=== PATIENT | female | born 1980 | race American Indian/Alaskan Native ===

== ENCOUNTER 2018-06-15 15:56 | Emergency (ER) | payer MEDICAID, OTHER ==
--- NOTE | 2018-06-15 17:11 | Emergency Department Report ---
Blank Doc - Documentation Documentation: 38 y o female presents stating that she is and having bilateral flank pAIN TOOK home upt 2 days ago no injuries, trauma,NO BLEEDING, NO PELC PAIN LMP: 03/13/18 ua,upt ac eval
[2018-06-15 17:49] LABS: HCG Qualitative,Urine Positive (Negative)
[2018-06-15 17:50] LABS: Bilirubin,Urine NEG (Negative); Color,Urine Yellow (Yellow)
[2018-06-15 17:51] LABS: Blood,Urine NEG (Negative); Mucus,Urine FEW /HPF; Protein,Urine <15 mg/dL mg/dL (Negative)
[2018-06-15 19:20] VITALS: BP 108/62
--- NOTE | 2018-06-15 19:30 | Emergency Department Report ---
ED HPI - General Chief complaint: Urogenital-Female Stated complaint: / BACK ACHE Time Seen by Provider: 06/15/18 19:17 Source: patient Mode of arrival: Ambulatory Limitations: No Limitations - History of Present Illness Initial comments: Patient is a 38-year-old female who presents to emergency room with complaints of lower back pain 2 days. Patient states she took a home test yesterday and is . Patient states that she has not seen an [facility]. Patient is unclear when her last mental. He is due to have an irregular period. Patient denies chest pain shortness of breath. Patient denies vaginal bleeding. Patient denies dysuria. Patient denies abdominal pain. Patient denies trauma to her back. Patient is not sure if she twisted her back. -: Sudden Location: other (back) Radiation: none - Related Data Allergies Allergy/AdvReac Type Severity Reaction Status Date / Time No Known Allergies Allergy Verified 06/15/18 16:57 ED Review of Systems ROS: Stated complaint: / BACK ACHE Other details as noted in HPI Constitutional: denies: chills, fever Eyes: denies: eye pain, eye discharge, vision change ENT: denies: ear pain, throat pain Respiratory: denies: cough, shortness of breath, wheezing Cardiovascular: denies: chest pain, palpitations Endocrine: no symptoms reported Gastrointestinal: denies: abdominal pain, nausea, diarrhea Genitourinary: denies: urgency, dysuria, discharge Musculoskeletal: back pain. denies: joint swelling, arthralgia Skin: denies: rash, lesions Neurological: denies: headache, weakness, paresthesias Psychiatric: denies: anxiety, depression Hematological/Lymphatic: denies: easy bleeding, easy bruising ED Past Medical Hx - Past Medical History Hx Asthma: Yes - Surgical History Additional Surgical History: cyst removed from right and left ovary - Social History Smoking Status: Unknown if ever smoked ED Physical Exam - General Limitations: No Limitations General appearance: alert, in no apparent distress - Head Head exam: Present: atraumatic, normocephalic - Eye Eye exam: Present: normal appearance - ENT ENT exam: Present: mucous membranes moist - Neck Neck exam: Present: normal inspection - Respiratory Respiratory exam: Present: normal lung sounds bilaterally. Absent: respiratory distress - Cardiovascular Cardiovascular Exam: Present: regular rate, normal rhythm. Absent: systolic murmur, diastolic murmur, rubs, gallop - GI/Abdominal GI/Abdominal exam: Present: soft, normal bowel sounds. Absent: distended, tenderness, guarding - Rectal Rectal exam: Present: deferred - Extremities Exam Extremities exam: Present: normal inspection - Back Exam Back exam: Present: normal inspection, paraspinal tenderness - Neurological Exam Neurological exam: Present: alert, oriented X3 - Psychiatric Psychiatric exam: Present: normal affect, normal mood - Skin Skin exam: Present: warm, dry, intact, normal color. Absent: rash ED Course Vital Signs 06/15/18 06/15/18 06/15/18 16:57 18:14 18:15 Temperature 99.8 F H 98.8 F Pulse Rate 74 80 Respiratory 16 16 16 Rate Blood Pressure 111/66 Blood Pressure 112/72 [Left] O2 Sat by Pulse 100 100 100 Oximetry 06/15/18 19:19 Temperature 98.5 F Pulse Rate 72 Respiratory 18 Rate Blood Pressure Blood Pressure 108/62 [Left] O2 Sat by Pulse 100 Oximetry - Reevaluation(s) Reevaluation #1: Discussed all results with patient. Patient stable for discharge. Patient agrees with plan of care. Patient given discharge instructions. Patient voiced understanding of all discharge instructions. 06/15/18 22:08 ED Medical Decision Making - Lab Data Result diagrams: 06/15/18 19:33 06/15/18 19:33 - Radiology Data Radiology results: report reviewed PROCEDURE: US OB <= 14 WEEKS FETUS TECHNIQUE: Real-time transabdominal sonography of the uterus, placenta, amniotic fluid, adnexa, and fetus was performed with image documentation. Measurements were obtained to determine age/size. M-mode Doppler was used to document heartbeat. ADDITIONAL GESTATION: None. HISTORY: preg. back pain COMPARISONS: None . FINDINGS: CRL: 5 mm, which corresponds to a gestational age of: 6 weeks, 2 days. Yolk Sac: Appropriate for gestational age. . Embryonic Cardiac Activity: 1 23 bpm . Gestational Sac: Size and shape are appropriate for gestational age Placenta: Normal Amniotic fluid: Appropriate for gestational age. Cervix: Normal. Right Ovary: Normal . Left Ovary: There is a dominant 2.4 cm cyst on the left ovary . Estimated delivery date: 02/06/2019 . Uterus and adnexa: There are a few fibroids within the uterus IMPRESSION: Single live intrauterine gestation at approximately 6 weeks 2 days . EDC by 02/06/2019 . - Medical Decision Making Patient is a 30-year-old female that presents emergency room with complaints of back pain and . Patient had a ultrasound done which proves a single IUP at 6 weeks and 2 days. Patient given all results. Patient's back pain se condary to a lumbar strain. Patient will be treated with Tylenol. Patient will be discharged home. Patient is stable for discharge. - Differential Diagnosis lumbar strain. . Critical care attestation.: If time is entered above; I have spent that time in minutes in the direct care of this critically ill patient, excluding procedure time. ED Disposition Clinical Impression: Lumbar sprain Qualifiers: Encounter type: initial encounter Qualified Code(s): S33.5XXA - Sprain of ligaments of lumbar spine, initial encounter Qualifiers: Weeks of gestation: less than 8 weeks Qualified Code(s): Z3A.01 - Less than 8 weeks gestation of Disposition: TO HOME OR SELFCARE Is pt being admited?: No Does the pt Need Aspirin: No Condition: Stable Instructions: Spontaneous Miscarriage (ED), Morning Sickness (ED), ( ED), Low Back Strain (ED) Additional Instructions: Patient is to follow-up with primary care in 2-3 days. Patient to follow up with [facility] in 2-3 days. Patient to return to ER if condition worsens. Patient to increase water. Patient start a vitamin. Patient to take Tylenol when necessary for pain. Referrals: [facility] [Other] - 2-3 Days NIKOS NELSON MD [Staff Physician] - 2-3 Days Forms: Work/School Release Form(ED) Time of Disposition: 22:10
[2018-06-15 19:50] LABS: Hematocrit 36.7 % (30.3-42.9); Hemoglobin 11.4 gm/dl (10.1-14.3); Mean Corpuscular HGB Conc 31 % (30-34); Mean Corpuscular Volume 77 fl (79-97); Platelet Count 258 K/mm3 (140-440); Red Blood Count 4.78 M/mm3 (3.65-5.03); Red Cell Distribution Width 21.1 % (13.2-15.2)
[2018-06-15] MEDS ORDERED: TYLENOL PO ONE (20:19)
[2018-06-15 20:24] LABS: BUN/Creatinine Ratio 6; Blood Urea Nitrogen 4 mg/dL (7-17); Calcium 9.1 mg/dL (8.4-10.2); Hemolysis Index 13
[2018-06-15 20:37] LABS: Alanine Aminotransferase < 5 units/L (7-56)
--- NOTE | 2018-06-15 21:38 | Ultrasound Report ---
PROCEDURE: US OB <= 14 WEEKS FETUS TECHNIQUE: Real-time transabdominal sonography of the uterus, placenta, amniotic fluid, adnexa, and fetus was performed with image documentation. Measurements were obtained to determine age/size. M-mode Doppler was used to document heartbeat. ADDITIONAL GESTATION: None. HISTORY: preg. back pain COMPARISONS: None . FINDINGS: CRL: 5 mm, which corresponds to a gestational age of: 6 weeks, 2 days. Yolk Sac: Appropriate for gestational age. . Embryonic Cardiac Activity: 1 23 bpm . Gestational Sac: Size and shape are appropriate for gestational age Placenta: Normal Amniotic fluid: Appropriate for gestational age. Cervix: Normal. Right Ovary: Normal . Left Ovary: There is a dominant 2.4 cm cyst on the left ovary . Estimated delivery date: 02/06/2019 . Uterus and adnexa: There are a few fibroids within the uterus IMPRESSION: Single live intrauterine gestation at approximately 6 weeks 2 days . EDC by US 02/07/20 19 . This document is electronically signed by Erin Park DO., June 15 2018 09:37:05 PM ET
--- NOTE | 2018-06-15 21:39 | Ultrasound Report ---
PROCEDURE: US OB transvaginal <= 14 WEEKS FETUS TECHNIQUE: Real-time transabdominal and transvaginal sonography of the uterus, placenta, amniotic fl uid, adnexa, and fetus was performed with image documentation. Measurements were obtained to determin e age/size. M-mode Doppler was used to document heartbeat. ADDITIONAL GESTATION: None. HISTORY: preg. back pain COMPARISONS: None . FINDINGS: CRL: 5 mm, which corresponds to a gestational age of: 6 weeks, 2 days. Yolk Sac: Appropriate for gestational age. . Embryonic Cardiac Activity: 1 23 bpm . Gestational Sac: Size and shape are appropriate for gestational age Placenta: Normal Amniotic fluid: Appropriate for gestational age. Cervix: Normal. Right Ovary: Normal . Left Ovary: There is a dominant 2.4 cm cyst on the left ovary . Estimated delivery date: 02/06/2019 . Uterus and adnexa: There are a few fibroids within the uterus IMPRESSION: Single live intrauterine gestation at approximately 6 weeks 2 days . EDC by US 02/07/20 19 . This document is electronically signed by Erin Park DO., June 15 2018 09:37:38 PM ET
== END 2018-06-15 23:20 | disposition home or self-care (01) ==
LOC: ED 15:56
DX: O9A.211 Injury, poisoning and certain other consequences of external causes complicating pregnancy, first trimester (principal); S33.5XXA Sprain of ligaments of lumbar spine, initial encounter; J45.909 Unspecified asthma, uncomplicated; Z3A.01 Less than 8 weeks gestation of pregnancy; X58.XXXA Exposure to other specified factors, initial encounter; Y93.89 Activity, other specified; Y92.89 Other specified places as the place of occurrence of the external cause; Y99.8 Other external cause status
CPT/HCPCS: 36415; 76801; 76817; 80053; 81001; 81025; 84702; 85027

== ENCOUNTER 2018-12-09 10:37 | Outpatient (CLI) | payer MEDICAID ==
[2018-12-09 11:44] LABS: Bilirubin,Urine NEG (Negative); Blood,Urine SM (Negative); Color,Urine Yellow (Yellow); Mucus,Urine FEW /HPF; Protein,Urine <15 mg/dL mg/dL (Negative); Urobilinogen,Urine < 2.0 mg/dL (<2.0)
[2018-12-09] MEDS ORDERED: LACTATED RINGERS 1,000 ML IV ONE (12:01)
[2018-12-09] MEDS ORDERED: ACETAMINOPHEN 500 MG TAB PO ONE (12:01)
--- NOTE | 2018-12-09 12:20 | Event Note ---
Date: 12/09/18 Pt to triage after several hours of spotting noted only after urination. CCUA small amount of blood; sent for UC. UA otherwise unremarkable. Sterile spec done with no pooling or active vaginal bleeding. cervix appears closed and thick. SVE closed/thick/-2. Small amount of light pink/white discharge noted on speculum. Wet prep + BV. Will give rx for BV and pt is to f/u in office tomorrow as scheduled.
== END 2018-12-09 14:17 | disposition home or self-care (01) ==
LOC: TRG 10:37
PROVIDERS: ATTEND Obstetrics & Gynecology
DX: O46.93 Antepartum hemorrhage, unspecified, third trimester (principal); O09.523 Supervision of elderly multigravida, third trimester; Z3A.34 34 weeks gestation of pregnancy
CPT/HCPCS: 59025; 81001; 87086; 87210; 96360; J7120

== ENCOUNTER 2019-01-02 21:13 | Outpatient (CLI) | payer MEDICAID ==
[2019-01-02] MEDS ORDERED: LACTATED RINGERS 1,000 ML IV ONE (22:24)
[2019-01-02 22:52] LABS: Bacteria,Urine 1+ /HPF (Negative); Bilirubin,Urine NEG (Negative); Blood,Urine NEG (Negative); Color,Urine Straw (Yellow); Mucus,Urine FEW /HPF; Protein,Urine <15 mg/dL mg/dL (Negative); Urobilinogen,Urine < 2.0 mg/dL (<2.0)
[2019-01-02] MEDS ORDERED: TERBUTALINE 1 MG/1 ML INJ SUB-Q ONE (23:35)
[2019-01-03 00:37] VITALS: BP 107/53
== END 2019-01-03 00:52 | disposition home or self-care (01) ==
LOC: TRG 21:13
PROVIDERS: ATTEND Obstetrics & Gynecology
DX: O62.9 Abnormality of forces of labor, unspecified (principal); O99.513 Diseases of the respiratory system complicating pregnancy, third trimester; J45.909 Unspecified asthma, uncomplicated; Z3A.35 35 weeks gestation of pregnancy; Z87.891 Personal history of nicotine dependence
CPT/HCPCS: 59025; 81001; 96360; 96372; J3105; J7120